=== PATIENT | male | born 1990 | race Caucasian/White ===

== ENCOUNTER → 2022-02-20 | Outpatient (CLI) | payer BC ==
[~2022-02-20] MED LIST: BACTRIM DS 8001 TA1 PO; CLINDAMYCIN150 MG PO; CYCLOBENZAPRINE5 MG PO; HYDROCODONE BIT1 T11 PO; MOTRIN800 MG PO; NAPROSYN500 MG PO; NKHM; PERCOCET 325 MG1 TA2 PO; VICODIN 500 MG-1 TAB PO
== END | disposition home or self-care (01) ==
LOC: RAD 11:10
PROVIDERS: ATTEND Internal Medicine Nephrology
DX: M54.9 Dorsalgia, unspecified (principal)

== ENCOUNTER → 2023-07-03 | Outpatient (CLI) | payer BC | END | disposition home or self-care (01) | LOC: RAD 12:59 | PROVIDERS: ATTEND Internal Medicine | DX: M25.561 Pain in right knee (principal) ==

== ENCOUNTER → 2023-09-10 | Outpatient (CLI) | payer BC | END | disposition home or self-care (01) | LOC: ORTHO 02:40 | PROVIDERS: ATTEND Orthopaedic Surgery | DX: M25.561 Pain in right knee (principal); Z98.890 Other specified postprocedural states ==

== ENCOUNTER → 2023-09-19 | Outpatient (CLI) | payer BC | END | disposition home or self-care (01) | LOC: MRI 09-17 15:00 | PROVIDERS: ATTEND Internal Medicine | DX: M51.16 Intervertebral disc disorders with radiculopathy, lumbar region (principal) ==